=== PATIENT | male | born 1990 | race Two or more races ===

== ENCOUNTER 2017-09-18 08:55 | Emergency (ER) | payer MEDICAID ==
[~2017-09-18] VITALS: Ht 167.6 cm; Wt 72.6 kg
--- NOTE | 2017-09-18 09:00 | NUR ---
BIBRA 89 C/O SEIZURE, +ORAL TRAUMA, PATIENT WAS ASSISTED TO THE FLOOR BY FRIEND. NOTED LAC ON UPPER LIP. ON C-SPINE PRECAUTIONS SPECIAL[facility]ANS. IV ACCESS [facility]. SEIZURE PRECAUTIONS IMPLEMENTED.SEEN BY MD FOR EVAL. VSS. SAFETY AND COMFORT MEASURES PROVIDED. WILL MONITOR.
--- NOTE | 2017-09-18 09:25 | NUR ---
PT TAKEN TO CT.
[2017-09-18] MEDS ORDERED: LORAZEPAM INJ 2 MG/ML VIAL IV ONE (09:30)
[2017-09-18] MEDS ORDERED: LORAZEPAM INJ 2 MG/ML VIAL ONE ×2 (09:48→09:49)
[2017-09-18 09:58] LABS: CALCIUM, SERUM 9.1 mg/dL (8.5-10.1); POTASSIUM 3.8 mmol/L (3.5-5.1)
[2017-09-18] MEDS ORDERED: VALPROATE 1,000 MG in IV D5W 100 ML IV SCH (10:30)
--- NOTE | 2017-09-18 10:40 | NUR ---
ISAIAH GREEN AT FOR WOUND CARE.
[2017-09-18] MEDS ORDERED: LEVETIRACETAM (500MG) 1,000 MG in IV NS 0.9% 100 ML IV SCH (11:00)
--- NOTE | 2017-09-18 11:10 | NUR ---
IV removed. Catheter intact and site benign. Pressure and 4x4 applied to site. No bleeding noted.
--- NOTE | 2017-09-18 11:25 | NUR ---
Patient discharged to home in stable condition. Written and verbal after care instructions given. Patient verbalizes understanding of instruction.
[2017-09-18 11:33] VITALS: BP 118/71
== END 2017-09-18 11:34 | disposition home or self-care (01) ==
LOC: ER 08:57
DX: S09.90XA Unspecified injury of head, initial encounter (principal); S01.511A Laceration without foreign body of lip, initial encounter; R56.9 Unspecified convulsions; R79.1 Abnormal coagulation profile; W22.8XXA Striking against or struck by other objects, initial encounter; Y93.89 Activity, other specified; Y92.89 Other specified places as the place of occurrence of the external cause; Y99.8 Other external cause status
CPT/HCPCS: 36415; 70450; 70486; 72125; 80048; 80164; 96374; 99285; A4606; A6402; J2060 ×2; Z7610